=== PATIENT | female | born 1985 | race Caucasian/White ===

== ENCOUNTER → 2016-06-29 | Outpatient (CLI) | payer OTHER ==
[~2016-06-29] MED LIST: ONDA4TAB7 PO; PROC10TA PO; RANI150T PO; ZOFR4TAB3 SL; ZOLO50TA PO
== END ==
LOC: CLAB 10:01
PROVIDERS: ATTEND Obstetrics & Gynecology
DX: O36.0130 Maternal care for anti-D [Rh] antibodies, third trimester, not applicable or unspecified (principal); Z67.21 Type B blood, Rh negative
CPT/HCPCS: 36415; 86850; 86900; 86901; 90384; 96372; J2790